=== PATIENT | female | born 1940 | race Caucasian/White ===

== ENCOUNTER 2020-11-26 08:14 | Day surgery (SDC) | payer MEDICARE ==
--- NOTE | 2020-11-25 12:00 | NUR ---
SPOKE WITH PATIENT ON THE PHONE TO UPDATE MEDICATIONS AND ALLERGY LIST.
[~2020-11-26] VITALS: Ht 162.6 cm; Wt 79.0 kg
[~2020-11-26 08:14] MED LIST: ATEN50 PO; HYDCHL25 PO; LOSA50 PO; OMEP20ER PO; ZOCOR20 MG PO
--- NOTE | 2020-11-26 09:25 | NUR ---
Ambulatory in Day Surgery History, Chart, Medications and Allergies reviewed before start of procedure.Patient confirms NPO status and agrees with scheduled surgery. Lungs clear T/O to Auscultation. Patient States Post-Procedure ride home has been arranged WITH DAUGHTER
--- NOTE | 2020-11-26 09:43 | NUR ---
11/26/20 0943 Leyda Bassett HISTORY,CHART, MEDICATIONS AND ALLERGIES REVIEWED BEFORE START OF PROCEDURE. PATIENT CONFIRMS NPO STATUS AND AGREES WITH SCHEDULED PROCEDURE. 3-LEAD EKG REVIEWED WITH PHYSICIAN PRIOR TO START OF PROCEDURE. MONITOR INTACT WITH CONTINUOUS PULSE OXIMETRY AND INTERMITTENT BP. SUPPLEMENTAL O2 TO BE TITRATED THROUGHOUT PROCEDURE TO MAINTAIN O2 SATURATION ABOVE 90%. PATIENT DETERMINED TO BE ASA APPROPRIATE FOR MODERATE SEDATION PRIOR TO START OF PROCEDURE BY . Bite Block Placed AND REMOVED AT END OF CASE.
--- NOTE | 2020-11-26 10:55 | NUR ---
Patient up to Ambulate independently. Gait steady. Discharge instructions reviewed with patient. Patient verbalizes understanding. Copy given to patient to take home. Discharged via wheelchair to private car for ride home.
== END 2020-11-26 10:54 | disposition home or self-care (01) ==
LOC: ORSCMMR 08:14 → ORD 09:30 → ORSCMMR 10:54
PROVIDERS: Internal Medicine Gastroenterology
PROC: 0DB98ZX Excision of Duodenum, Via Natural or Artificial Opening Endoscopic, Diagnostic (ICD-10-PCS; principal; 2020-11-26 09:30)
PROC: 0DB48ZX Excision of Esophagogastric Junction, Via Natural or Artificial Opening Endoscopic, Diagnostic (ICD-10-PCS; principal; 2020-11-26 09:30)
PROC: 0DB78ZX Excision of Stomach, Pylorus, Via Natural or Artificial Opening Endoscopic, Diagnostic (ICD-10-PCS; principal; 2020-11-26 09:30)
DX: R11.2 Nausea with vomiting, unspecified (principal); R10.13 Epigastric pain; K21.9 Gastro-esophageal reflux disease without esophagitis; K22.2 Esophageal obstruction; K44.9 Diaphragmatic hernia without obstruction or gangrene; I10 Essential (primary) hypertension; E78.00 Pure hypercholesterolemia, unspecified; Z79.899 Other long term (current) drug therapy
CPT/HCPCS: 88305; 88312; 88342; A9270; J2250; J3010; J7120

== ENCOUNTER 2021-10-07 17:47 | Emergency (ER) | payer MEDICARE ==
[~2021-10-07] VITALS: Ht 162.6 cm; Wt 72.6 kg
[~2021-10-07 17:47] MED LIST changes: +HYDR1TAB94 PO; +Norco 5-325 Ta1 EACH PO; +VALA500 PO
[2021-10-07 19:15] LABS: BASOPHILS ABSOLUTE AUTO 0.03 K/mm3 (0.00-0.23); BASOPHILS PERCENT AUTO 0 % (0-2); EOSINOPHILS PERCENT AUTO 0 % (0-6); Hematocrit 32.8 % (33.0-51.0); Hemoglobin 9.9 g/dL (11.5-16.0); IMMATURE GRAN ABSOLUTE AUTO 0.02 K/mm3 (0.00-0.10); IMMATURE GRAN PERCENT AUTO 0 % (0-1); LYMPHOCYTES ABSOLUTE AUTO 2.33 K/mm3 (0.84-5.20); LYMPHOCYTES PERCENT AUTO 30 % (21-46); MONOCYTES ABSOLUTE AUTO 0.72 K/mm3 (0.16-1.47); MONOCYTES PERCENT AUTO 9 % (4-13); Mean Corpuscular HGB 24.6 pg (26.0-34.0); Mean Corpuscular HGB Conc 30.2 g/dL (31.5-36.5); Mean Corpuscular Volume 82 fL (80-100); Mean Platelet Volume 10.2 fL (9.1-12.4); NEUTROPHILS ABSOLUTE AUTO 4.79 K/mm3 (1.96-9.15); NEUTROPHILS PERCENT AUTO 61 % (41-73); Platelet Count 333 K/mm3 (150-400); RDW Coefficient Variation 16.4 % (11.7-14.2); Red Blood Cell Count 4.02 M/mm3 (3.80-5.20); White Blood Cell Count 7.89 K/mm3 (4.00-11.30)
[2021-10-07 19:32] LABS: Alanine Aminotransfer (ALT/SGP 18 U/L (12-78); Albumin, Blood 3.3 g/dL (3.4-5.0); Albumin/Globulin Ratio 0.8 (0.8-1.8); Alk Phos 63 U/L (50-136); Anion Gap 5 mmol/L (6-16); Aspartate Aminotrans (AST/SGOT 13 U/L (12-37); Bilirubin, Total 0.2 mg/dL (0.1-1.0); Blood Urea Nitrogen 14 mg/dL (8-24); Bun/Creatinine Ratio 15.8 (12.0-20.0); CO2, Blood 29 mmol/L (21-32); Chloride, Blood 105 mmol/L (98-108); Creatinine, Blood 0.89 mg/dL (0.40-1.00); Globulin, Blood 4.1 g/dL (2.2-4.0); Glomerular Filtration Rate >60 (60-); Glucose, Blood 112 mg/dL (70-99); Potassium, Blood 3.9 mmol/L (3.5-5.5); Sodium, Blood 139 mmol/L (136-145); Total Protein, Blood 7.4 g/dL (6.4-8.2)
[2021-10-07 23:15] LABS: Source, Urine Clean Catch
[2021-10-07 23:17] LABS: Bilirubin, Urine Neg (Neg); Blood, Urine Neg (Neg); Glucose Qualitative, Urine Neg (Neg); Ketones, Urine Neg (Neg); Leukocyte Esterase, Urine Neg (Neg); Nitrite, Urine Neg (Neg); Protein, Urine Neg (Neg); Urobilinogen, Urine NORM (Normal)
[2021-10-07 23:20] LABS: Appearance, Urine Clear (Clear); Color, Urine Yellow (P-Yellow)
[2021-10-07] MEDS ORDERED: HYDMOR2 PO (23:57)
== END 2021-10-08 00:15 | disposition home or self-care (01) ==
LOC: ER 17:47
PROVIDERS: Emergency Medicine; Physician Assistant
DX: B02.9 Zoster without complications (principal); R10.9 Unspecified abdominal pain; Z87.891 Personal history of nicotine dependence
CPT/HCPCS: 36415; 71045; 74177; 80053; 81003; 83690; 84484; 85025; 93005; 93010; 96374; 96375; 99284-25; J1170; J2405; J7030; Q9967

== ENCOUNTER 2021-10-20 04:30 | Inpatient (IN) | payer MEDICARE ==
[~2021-10-20] VITALS: Ht 162.6 cm; Wt 72.6 kg
[~2021-10-20 04:30] MED LIST changes: +HYDMOR2 PO
[2021-10-20 06:43] LABS: BASOPHILS ABSOLUTE AUTO 0.02 K/mm3 (0.00-0.23); BASOPHILS PERCENT AUTO 0 % (0-2); EOSINOPHILS PERCENT AUTO 0 % (0-6); Hemoglobin 10.3 g/dL (11.5-16.0); IMMATURE GRAN ABSOLUTE AUTO 0.03 K/mm3 (0.00-0.10); IMMATURE GRAN PERCENT AUTO 0 % (0-1); LYMPHOCYTES PERCENT AUTO 24 % (21-46); MONOCYTES ABSOLUTE AUTO 0.73 K/mm3 (0.16-1.47); MONOCYTES PERCENT AUTO 9 % (4-13); Mean Corpuscular HGB 24.6 pg (26.0-34.0); Mean Corpuscular HGB Conc 30.3 g/dL (31.5-36.5); Mean Corpuscular Volume 81 fL (80-100); NEUTROPHILS ABSOLUTE AUTO 5.58 K/mm3 (1.96-9.15); NEUTROPHILS PERCENT AUTO 67 % (41-73); Platelet Count 329 K/mm3 (150-400); RDW Standard Deviation 50.3 fL (35.1-46.3); Red Blood Cell Count 4.19 M/mm3 (3.80-5.20); White Blood Cell Count 8.36 K/mm3 (4.00-11.30)
[2021-10-20 07:11] LABS: Albumin, Blood 3.2 g/dL (3.4-5.0); Albumin/Globulin Ratio 0.8 (0.8-1.8); Bilirubin, Total 0.3 mg/dL (0.1-1.0); Bun/Creatinine Ratio 14.4 (12.0-20.0); Calcium, Blood 9.2 mg/dL (8.5-10.1); Creatinine, Blood 0.97 mg/dL (0.40-1.00); Globulin, Blood 3.9 g/dL (2.2-4.0); Potassium, Blood 3.4 mmol/L (3.5-5.5); Total Protein, Blood 7.1 g/dL (6.4-8.2)
[2021-10-20 09:36] LABS: Percent Saturation 6.4 % (15.0-50.0)
--- NOTE | 2021-10-20 18:43 | NUR ---
SHIFT SUMMARY PT TO ROOM AT APPROX 1230. PT CAME TO HOSPITAL VIA EMS FOR ABD PAIN X5 WEEKS W/ CONSTIPATION. PT TO HAVE EXPLORATIVE PROCEDURE TOMORROW. PT ON WATER ONLY DIET W/ ADMINISTRATION OF MAGNESIUM CITRATE FOR COLON CLEANSING. PT MEDICATIONS GIVEN ORDERED. PT RECEIVING ACETAMINOPHEN AND FENTANYL FOR PAIN CONTROL. PT TOLERATING WATER INTAKE WELL. RESTING IN ROOM AT THIS TIME.
--- NOTE | 2021-10-21 04:06 | NUR ---
SHIFT SUMMARY PT HAVING MULTIPLE AND FREQUENT BROWN LIQUID STOOL. INDEPENDENT TO THE RESTROOM. 50 MCG IV FENTANYL FOR ABD PAIN PRN. PLAN FOR COLON CLEANSE TODAY AND COLONOSCOPY THIS AFTERNOON. USES CALL LIGHT APPROPRIATELY.
[2021-10-21 11:48] LABS: Anion Gap 4 mmol/L (6-16); Blood Urea Nitrogen 8 mg/dL (8-24); Bun/Creatinine Ratio 9.4 (12.0-20.0); CO2, Blood 26 mmol/L (21-32); Calcium, Blood 9.3 mg/dL (8.5-10.1); Chloride, Blood 107 mmol/L (98-108); Creatinine, Blood 0.85 mg/dL (0.40-1.00); Glomerular Filtration Rate >60 (60-); Glucose, Blood 108 mg/dL (70-99); Potassium, Blood 4.2 mmol/L (3.5-5.5); Sodium, Blood 137 mmol/L (136-145)
--- NOTE | 2021-10-21 12:00 | NUR ---
PT MADE NPO FOR UPCOMING SCOPE.
[2021-10-21 13:13] LABS: Influenza A, PCR NEGATIVE (NEGATIVE); Influenza B, PCR NEGATIVE (NEGATIVE); Resp Syncytial Virus, PCR NEGATIVE (NEGATIVE); SARS-Cov-2 (COVID-19) PCR, MMC NEGATIVE (NEGATIVE)
--- NOTE | 2021-10-21 16:42 | NUR ---
10/21/21 1642 Marko Barnes History, Chart, Medications and Allergies reviewed before start of procedure. Patient confirms NPO status and agrees with scheduled surgery. 3-LEAD EKG REVIEWED WITH PHYSICIAN PRIOR TO START OF PROCEDURE. MONITOR INTACT WITH CONTINUOUS PULSE OXIMETRY AND INTERMITTENT BP. PATIENT DETERMINED TO BE ASA APPROPRIATE FOR PROPOFOL SEDATION PRIOR TO START OF PROCEDURE BY DR. MORRISON
--- NOTE | 2021-10-21 17:47 | NUR ---
PT BACK FROM COLONOSCOPY.
[2021-10-22 05:04] LABS: Hematocrit 30.8 % (33.0-51.0); Hemoglobin 9.2 g/dL (11.5-16.0); Mean Corpuscular HGB 24.1 pg (26.0-34.0); Mean Corpuscular HGB Conc 29.9 g/dL (31.5-36.5); Mean Corpuscular Volume 81 fL (80-100); Mean Platelet Volume 11.1 fL (9.1-12.4); Platelet Count 285 K/mm3 (150-400); RDW Coefficient Variation 17.2 % (11.7-14.2); RDW Standard Deviation 50.6 fL (35.1-46.3); Red Blood Cell Count 3.81 M/mm3 (3.80-5.20); White Blood Cell Count 6.69 K/mm3 (4.00-11.30)
--- NOTE | 2021-10-22 05:15 | NUR ---
ASSISTANT CHIEF OF POLICE SUMMARY PATIENT ALERT AND ORIENTED X4 AND COOPERATIVE WITH CARE THROUGHT THE SHIFT. PATIENT REPORTED 10/10 ABDOMINAL PAIN DURING THE NIGHT AND WAS MEDICATED WITH FENTANYL PER EMAR. JEAN IV REMOVED TO ACCOMODATE PATIENT COMFORT. PATIENT DENIES NAUSEA OR VOMITTING. VSS. PATIENT REMAINS ON CLEAR LIQUID DIET, PER DR. MORRISON. MAY UNDERGO PROCEDURE IN THE AM.
[2021-10-22 05:32] LABS: Anion Gap 5 mmol/L (6-16); Blood Urea Nitrogen 6 mg/dL (8-24); Bun/Creatinine Ratio 7.1 (12.0-20.0); CO2, Blood 24 mmol/L (21-32); Calcium, Blood 8.8 mg/dL (8.5-10.1); Chloride, Blood 109 mmol/L (98-108); Creatinine, Blood 0.85 mg/dL (0.40-1.00); Glomerular Filtration Rate >60 (60-); Glucose, Blood 94 mg/dL (70-99); Potassium, Blood 3.9 mmol/L (3.5-5.5); Sodium, Blood 138 mmol/L (136-145)
--- NOTE | 2021-10-22 15:48 | NUR ---
Pt. is awake in bed and welcomes my visit. Daughter of Pt. is present. Pt. is unsettled about the unknown prognosis regarding her cancer. Listen empthetically with a calming presence. Pt. displayed evidecne of reduced stress and verbalized that she is a woman of joy. Established rapport with Pt. and her daughter. Pt. displayed evidence of Prayed for Pt. Both womern verbalized gratitude for the spiritual care visit.
--- NOTE | 2021-10-22 18:34 | NUR ---
SHIFT SUMMARY PT AOX4. PATIENT MOVING INDEPENDENTLY IN ROOM, NO BM TODAY. PT REPORTED PAIN MOSTLY IN THE LUQ THAT SPREADS TO THE BACK, SWITCHED FROM FENTANYL TO DILAUDID, PT REPORTS BETTER PAIN CONTROL. DIET ADVANCED TO REGLAR, CALL LIGHT WITHIN REACH. PLAN IS TO DISCHARGE TOMORROW AND SURGERY TO HAPPEN AT A LATER DATE.
--- NOTE | 2021-10-23 05:33 | NUR ---
PATIENT REPORTED LEFT SIDED ABDOINAL PAIN THROUGHOUT THE NIGHT. SHE WAS MEDICATED WITH DILAUDED Q4 PER EMAR. NO WORSENING ABDOMINAL DISTENTION OR TENDERNESS WAS NOTED. PATIENT DENIES NAUSEA OR VOMITING. VSS. NO ACUTE CHANGES THIS SHIFT.
[2021-10-23] MEDS ORDERED: HYDMOR2 PO (12:34)
[2021-10-23] MEDS ORDERED: DOCU100 PO (12:35)
[2021-10-23] MEDS ORDERED: GABA300 PO (12:36)
--- NOTE | 2021-10-23 15:07 | NUR ---
DISCHARGE PT DISCHARGED, REPORTS PAIN LEVEL 5/10. TOLERATING FOOD AND FLUID, INDEPENDENT IN ROOM. PT AND DAUGHTER IN AGREEMENT TO DISCHARGE AND RETURN FOR PROCEDURE AT A LATER DATE. HARD COPY OF PRESCRIPTION IN PT'S FOLDER.
== END 2021-10-23 15:15 | disposition home or self-care (01) | DRG 375 ==
LOC: ER 04:30 → SURS 04:31 → ERHOLD 04:31 → SURS 11:21
PROVIDERS: Emergency Medicine; Internal Medicine; Internal Medicine Gastroenterology; ADMIT Internal Medicine
PROC: 0DBP8ZZ Excision of Rectum, Via Natural or Artificial Opening Endoscopic (ICD-10-PCS; principal; 2021-10-23)
PROC: 0DBK8ZX Excision of Ascending Colon, Via Natural or Artificial Opening Endoscopic, Diagnostic (ICD-10-PCS; 2021-10-23)
DX: C18.2 Malignant neoplasm of ascending colon (principal); B02.29 Other postherpetic nervous system involvement; K56.609 Unspecified intestinal obstruction, unspecified as to partial versus complete obstruction; C77.2 Secondary and unspecified malignant neoplasm of intra-abdominal lymph nodes; K21.9 Gastro-esophageal reflux disease without esophagitis; E78.00 Pure hypercholesterolemia, unspecified; I12.9 Hypertensive chronic kidney disease with stage 1 through stage 4 chronic kidney disease, or unspecified chronic kidney disease; N18.30 Chronic kidney disease, stage 3 unspecified; E87.5 Hyperkalemia; D50.9 Iron deficiency anemia, unspecified; D63.1 Anemia in chronic kidney disease; E87.6 Hypokalemia; K64.4 Residual hemorrhoidal skin tags; R63.4 Abnormal weight loss; K59.00 Constipation, unspecified; E78.5 Hyperlipidemia, unspecified; Z68.27 Body mass index [BMI] 27.0-27.9, adult; Z90.710 Acquired absence of both cervix and uterus; Z90.49 Acquired absence of other specified parts of digestive tract; Z98.890 Other specified postprocedural states; Z87.891 Personal history of nicotine dependence; Z88.5 Allergy status to narcotic agent; Z88.8 Allergy status to other drugs, medicaments and biological substances
CPT/HCPCS: 0241U; 36415; 71260; 74177; 80048; 80053; 82378; 82728; 83540; 83550; 83690; 85025; 85027; 88305; 96365-59; 96366; 96375; 96376; 99285-25; A9270; G0378; J1170; J1885; J2001; J2405; J2704; J3010; J3480; J7030; J7120; Q9967

== ENCOUNTER 2021-10-28 07:55 | Inpatient (IN) | payer MEDICARE ==
[~2021-10-28] VITALS: Ht 162.6 cm; Wt 68.8 kg
[~2021-10-28 07:55] MED LIST changes: +DOCU100 PO; +GABA300 PO; -ZOCOR20 MG PO; +Zocor40 MG PO
--- NOTE | 2021-10-28 08:33 | NUR ---
ARRIVED IN WHEEL CHAIR ABLE TO GET ON SCALE AND WEIGHED AND ESCORTED TO BEDSIDE. History, Chart, Medications and Allergies reviewed before start of procedure. Patient confirms NPO status and agrees with scheduled surgery.
--- NOTE | 2021-10-28 19:19 | NUR ---
SHIFT SUMMARY POD0 R ANAI COLECTOMY FOR TUMOR REMOVAL, A/OX4, VSS, TOLERATING DIET, PAIN WELL MANAGED, JOHNSON IN PLACE DRAINING TO GRAVITY. PT SLEPT THROUGH MOST OF THE SHIFT AFTER COMING OUT OF PACU. NO ACUTE EVENTS THIS SHIFT. CALL LIGHT IN REACH, REPORT GIVEN TO KAITLIN BENAVIDES.
--- NOTE | 2021-10-28 19:34 | NUR ---
PT COMPLAINS OF PAIN FROM JOHNSON, D/C JOHNSON. PT TOLERATED INTERVENTION WELL.
[2021-10-29 05:07] LABS: BASOPHILS ABSOLUTE AUTO 0.02 K/mm3 (0.00-0.23); BASOPHILS PERCENT AUTO 0 % (0-2); EOSINOPHILS PERCENT AUTO 0 % (0-6); Hematocrit 27.9 % (33.0-51.0); Hemoglobin 8.5 g/dL (11.5-16.0); IMMATURE GRAN ABSOLUTE AUTO 0.04 K/mm3 (0.00-0.10); IMMATURE GRAN PERCENT AUTO 0 % (0-1); LYMPHOCYTES ABSOLUTE AUTO 1.25 K/mm3 (0.84-5.20); LYMPHOCYTES PERCENT AUTO 13 % (21-46); MONOCYTES ABSOLUTE AUTO 0.86 K/mm3 (0.16-1.47); MONOCYTES PERCENT AUTO 9 % (4-13); Mean Corpuscular HGB 24.5 pg (26.0-34.0); Mean Corpuscular HGB Conc 30.5 g/dL (31.5-36.5); Mean Corpuscular Volume 80 fL (80-100); Mean Platelet Volume 11.3 fL (9.1-12.4); NEUTROPHILS ABSOLUTE AUTO 7.79 K/mm3 (1.96-9.15); NEUTROPHILS PERCENT AUTO 78 % (41-73); Platelet Count 264 K/mm3 (150-400); RDW Standard Deviation 49.4 fL (35.1-46.3); Red Blood Cell Count 3.47 M/mm3 (3.80-5.20); White Blood Cell Count 9.96 K/mm3 (4.00-11.30)
[2021-10-29 05:44] LABS: Bun/Creatinine Ratio 8.9 (12.0-20.0); Calcium, Blood 8.7 mg/dL (8.5-10.1); Creatinine, Blood 0.9 mg/dL (0.40-1.00); Potassium, Blood 3.6 mmol/L (3.5-5.5)
--- NOTE | 2021-10-29 05:46 | NUR ---
PT IS A&OX4, SBA TO BR AND IS ABLE TO MAKE NEEDS KNOWN. POST OP DAY 1 FOR LAP ANAI TAMRA. JOHNSON D/C'D AT START OF SHIFT PER PATIENT'S REQUEST, PT ABLE TO AMBULATE TO BR AND VIOD. PAIN CONTROLLED WITH PRN NORCO. LAP SITES ARE CLEAN AND DRY WITH NO REPORTS OF PAIN OR INFLAMMATION. BOWEL TONES ARE AUTIABLE IN ALL QUAD, FAINT IN THE LLQ. PT TOLERATING CLEAR LIQUID DIET. SLEEPS BETWEEN CARES, 6+ HOURS THIS SHIFT.
--- NOTE | 2021-10-29 10:39 | NUR ---
Spiritual Care Request: Pt. is awake in bed and welcomes my visit. Pt.is pleasant, and had recently been readmitted for cancer surgery. Pt. is alert. Establish Rapport and provide a pastoral presence as well as facilitate a life review. Pt. displays evidence of a strong joy. Prayed with Pt. Pt. verbalized gratiude for the spiritual care visit.
--- NOTE | 2021-10-29 18:20 | NUR ---
SHIFT SUMMARY PATIENT COMPLAINED OF UPPER ABDOMINAL PAIN THAT WORSENED ON DEEP BREATHING. PAIN WAS CONTROLLED W/ NORCO ORDERED BUT WOULD RETURN BEFORE NEXT AVAILABLE ADMINISTRATION AND WORSENED UPON AMBULATION. PT ABLE TO AMBULATE HERSELF TO THE BATHROOM MULTIPLE TIMES T/O SHIFT REQUIRING MINIMAL ASSISTANCE. OTHER MEDS GIVEN ORDERED T/O SHIFT. PT REPORTED A BOUT OF NAUSEA AFTER MEALS WHICH RESOLVED W/O MEDICAL INTERVENTION. PT IS OTHERWISE TOLERATING DIET WELL. PT REQUESTED USE OF ATTENDS DUE TO URGENCY ISSUES. PT RESTING IN ROOM AT THIS TIME.
--- NOTE | 2021-10-30 05:52 | NUR ---
SHIFT SUMMARY NO ACUTE CHANGES OVERNIGHT. PT STS SHE FELT MORE PAINFUL LAST NIGHT FROM MOVING AROUND DURING THE DAY. PAIN MANAGED WITH TORADOL 15MG AND NORCO 5/325. PAIN LEVEL FROM 10/10 TO MODERATE THIS MORNING 4-5/10 PAIN LEVEL. PT AMBULATES SBA IN THE BATHROOM. VOIDING WITHOUT ISSUES. POD2 R HEMICOLECTOMY WITH ABD INCISION, RUDDY DRESSING SUCTION WELL, CDI. PT HAS BM (SMALL) THIS AM. PT TOLERATING CLEAR LIQ DIET. DENIES N/V. LR INFUSING AT 50MLS/HR. CALL LIGHT WITHIN REACH. WILL PROVIDE REPORT TO ONCOMING NURSE.
--- NOTE | 2021-10-30 16:07 | NUR ---
SHIFT SUMMARY - POST OP DAY 2 PT AOX4, PLEASANT. INDEPENDENTLY AMBULATING TO BATHROOM WITH FWW, VOIDING WITHOUT ISSUE. PAIN MANAGED PER EMAR. 4 LAP SITES AND ABD INCISION WITH RUDDY DRESSING ALL C/D/I. DIET ADVANCED TO REGULAR. DENIES NAUSEA/VOMITING. IV IN LEFT AC SALINE LOCKED. CALL LIGHT WITHIN REACH. PLAN IS TO CONTINUE TO MONITOR PROGRESS, WITH THE POSSIBILITY OF DISCHARGING THIS WEEKEND.
--- NOTE | 2021-10-30 16:13 | NUR ---
SHIFT SUMMARY: POD 2 RIGHT ANAI COLECTOMY PATIENT IS A&OX4. VS ARE WNL AND ON RA. PAIN IS MANAGED WITH 2 NORCO AND TORDAOL. MIDLINE ABD HAS RUDDY DRESSING THAT IS C/D/I. TOLERATING PO INTAKE AND IS VOIDING. HER 3 LAP SITES WITH STERI STRIPS ARE ALSO C/D/I. SHE IS AMBULATING IN THE ROOM INDEP. CALLS APPROPRIATELY. CALL LIGHT WITHIN REACH. THE PLAN IS FOR POSSIBLE DISCHARGE TOMORROW IF APPROPRIATE.
--- NOTE | 2021-10-31 08:31 | NUR ---
SUMMARY PT HAD EPISODE UPON WAKING THIS AM OF NAUSEA AND PAIN.MED WITH TORADOL AND ZOFRAN.PT SLEPT AFTER. PT STATES WHEN AWAKE AGAIN, TRACE OF NAUSEA PERSISTS. MED WITH PROTONIX PER ORDERS.
--- NOTE | 2021-10-31 15:59 | NUR ---
SHIFT SUMMARY PT A&OX4, VSS/RA, POD3 LAP ANAI STERIS STRIPS & RUDDY CDI/WNL. DENIES NEED FOR NORCO, TORADOL GIVEN PER EMAR. PERCY SMALL AMT PO; ZOFRAN GIVEN 2X THIS SHIFT. AMBULATING INDEPENDENTLY TO BRP/HALLWAY. VOIDING WELL/BMS TODAY X3. WILL REPORT TO ONCOMING NOC KENNEDY.
[2021-11-01] MEDS ORDERED: ONDA4ODT MM (12:05)
[2021-11-01] MEDS ORDERED: HYDR1TAB94 PO (12:05)
--- NOTE | 2021-11-01 12:37 | NUR ---
DISCHARGE SUMMARY: A&Ox4. PAIN LVL 1. PROVIDED WITH DC INSTRUCTIONS AND PACKET. CONT HOME MEDS; +NORCO AND ZOFRAN. HARD COPY Rx X2 PROVIDED TO PT. VOIDING AND STOOLING WITHOUT DIFFICULTY. TOLERATING PO INTAKE. IND AMB. LEFT UNIT VIA WC ESCORT WITH ALL BELONGINGS AND DC PACKET FOR TRANSPORT HOME WITH HER DAUGHTER.
[2021-11-08] MEDS ORDERED: MICROZIDE12.5 M2 PO (22:57)
--- NOTE | 2021-11-08 23:25 | NUR ---
REVIEWED PT'S INFORMATION R/T CURRENT ADMISSION
== END 2021-11-01 14:00 | disposition home or self-care (01) | DRG 331 ==
LOC: SURS 07:55 → PRE IP 09:30 → SURS 14:56
PROVIDERS: ADMIT Surgery
PROC: 0DTF4ZZ Resection of Right Large Intestine, Percutaneous Endoscopic Approach (ICD-10-PCS; principal; 2021-10-28 09:30)
DX: C18.2 Malignant neoplasm of ascending colon (principal); Z79.899 Other long term (current) drug therapy; Z88.5 Allergy status to narcotic agent
CPT/HCPCS: 36415; 80048; 85025; 86850; 86900; 86901; 88309; A9270; J0295; J0360; J1100; J1650; J1885; J2370; J2405; J2704; J2765; J3010; J7120

== ENCOUNTER 2021-11-08 17:33 | Inpatient (IN) | payer MEDICARE, OTHER ==
[~2021-11-08] VITALS: Ht 162.6 cm; Wt 72.6 kg
[~2021-11-08 17:33] MED LIST changes: +ONDA4ODT MM
[2021-11-08 18:18] LABS: BASOPHILS ABSOLUTE AUTO 0.03 K/mm3 (0.00-0.23); BASOPHILS PERCENT AUTO 0 % (0-2); EOSINOPHILS PERCENT AUTO 0 % (0-6); Hematocrit 33.2 % (33.0-51.0); IMMATURE GRAN ABSOLUTE AUTO 0.08 K/mm3 (0.00-0.10); IMMATURE GRAN PERCENT AUTO 1 % (0-1); LYMPHOCYTES ABSOLUTE AUTO 0.86 K/mm3 (0.84-5.20); LYMPHOCYTES PERCENT AUTO 6 % (21-46); MONOCYTES ABSOLUTE AUTO 0.71 K/mm3 (0.16-1.47); MONOCYTES PERCENT AUTO 5 % (4-13); Mean Corpuscular HGB Conc 30.1 g/dL (31.5-36.5); Mean Corpuscular Volume 80 fL (80-100); Mean Platelet Volume 10.3 fL (9.1-12.4); NEUTROPHILS ABSOLUTE AUTO 12.01 K/mm3 (1.96-9.15); NEUTROPHILS PERCENT AUTO 88 % (41-73); Platelet Count 483 K/mm3 (150-400); RDW Coefficient Variation 17.3 % (11.7-14.2); RDW Standard Deviation 50.2 fL (35.1-46.3); Red Blood Cell Count 4.17 M/mm3 (3.80-5.20); White Blood Cell Count 13.69 K/mm3 (4.00-11.30)
[2021-11-08 18:31] LABS: Source, Urine Straight Cath
[2021-11-08 18:36] LABS: Alanine Aminotransfer (ALT/SGP 21 U/L (12-78); Albumin, Blood 2.8 g/dL (3.4-5.0); Albumin/Globulin Ratio 0.8 (0.8-1.8); Alk Phos 58 U/L (50-136); Anion Gap 5 mmol/L (6-16); Aspartate Aminotrans (AST/SGOT 13 U/L (12-37); Bilirubin, Total 0.4 mg/dL (0.1-1.0); Blood Urea Nitrogen 11 mg/dL (8-24); Bun/Creatinine Ratio 13.1 (12.0-20.0); CO2, Blood 29 mmol/L (21-32); Calcium, Blood 9.3 mg/dL (8.5-10.1); Chloride, Blood 106 mmol/L (98-108); Creatinine, Blood 0.84 mg/dL (0.40-1.00); Globulin, Blood 3.5 g/dL (2.2-4.0); Glomerular Filtration Rate >60 (60-); Glucose, Blood 109 mg/dL (70-99); Potassium, Blood 3.3 mmol/L (3.5-5.5); Sodium, Blood 140 mmol/L (136-145); Total Protein, Blood 6.3 g/dL (6.4-8.2)
[2021-11-08 18:38] LABS: Appearance, Urine Turbid (Clear); Bilirubin, Urine Neg (Neg); Blood, Urine Neg (Neg); Color, Urine Yellow (P-Yellow); Glucose Qualitative, Urine Neg (Neg); Ketones, Urine Neg (Neg); Leukocyte Esterase, Urine Neg (Neg); Nitrite, Urine Neg (Neg); Protein, Urine 2+ (Neg); Urobilinogen, Urine NORM (Normal)
[2021-11-08 19:05] LABS: Red Blood Cells, Urine 0-2 /hpf (0-2); Squamous Epithelial Cells Few /hpf (Few); White Blood Cells, Urine 0-2 /hpf (0-5)
[2021-11-08 19:06] LABS: Amorphous Heavy (0-Heavy); Bacteria Many /hpf; Mucus Mod (0-Heavy)
[2021-11-08] MEDS ORDERED: MICROZIDE12.5 M2 PO ×2 (22:57)
[2021-11-08] MEDS ORDERED: ATEN50 PO (22:57)
--- NOTE | 2021-11-09 03:51 | NUR ---
SHIFT SUMMARY PT NEW ED ADMIT THIS EVENING. PLEASANT AND COOPERATIVE. PT WITH RECENT LAP COLECTOMY. 4 INCISION SITES WITH STERI STRIPS IN PLACE. NO REDNESS NOTED. POSSIBLY SLIGHT SWELLING JUST TO THE LEFT OF LARGEST INCISION MID ABD. THIS IS WHERE PT REPORTS PAIN. MEDICATED PER EMAR. PT STATED THAT SHE HAD 2 EPISODES OF DIARRHEA DURING THE DAY BEFORE COMING TO THE ER. NONE SINCE ADMISSION. JOHNSON CATHETER PLACED IN ED, NO ORDER AND PT REQUESTED TO HAVE REMOVED. JOHNSON REMOVED AND PT WAS ABLE TO IMMEDIATELY VOID IN THE BSC. FEBRILE PRIOR TO ADMISSION, RESOLVED WITH RECTAL TYLENOL GIVEN BY ED RN. VITAL SIGNS STABLE. WILL CONTINUE TO MONITOR.
[2021-11-09 05:15] LABS: BASOPHILS ABSOLUTE AUTO 0.02 K/mm3 (0.00-0.23); BASOPHILS PERCENT AUTO 0 % (0-2); EOSINOPHILS PERCENT AUTO 0 % (0-6); Hematocrit 25.9 % (33.0-51.0); Hemoglobin 7.8 g/dL (11.5-16.0); IMMATURE GRAN ABSOLUTE AUTO 0.04 K/mm3 (0.00-0.10); IMMATURE GRAN PERCENT AUTO 0 % (0-1); LYMPHOCYTES ABSOLUTE AUTO 1.54 K/mm3 (0.84-5.20); LYMPHOCYTES PERCENT AUTO 12 % (21-46); MONOCYTES PERCENT AUTO 8 % (4-13); Mean Corpuscular HGB 24.1 pg (26.0-34.0); Mean Corpuscular HGB Conc 30.1 g/dL (31.5-36.5); Mean Corpuscular Volume 80 fL (80-100); Mean Platelet Volume 10.5 fL (9.1-12.4); NEUTROPHILS ABSOLUTE AUTO 10.43 K/mm3 (1.96-9.15); NEUTROPHILS PERCENT AUTO 80 % (41-73); Platelet Count 357 K/mm3 (150-400); RDW Coefficient Variation 17.4 % (11.7-14.2); Red Blood Cell Count 3.23 M/mm3 (3.80-5.20); White Blood Cell Count 13.03 K/mm3 (4.00-11.30)
[2021-11-09 05:46] LABS: Albumin, Blood 2.1 g/dL (3.4-5.0); Anion Gap 5 mmol/L (6-16); Blood Urea Nitrogen 11 mg/dL (8-24); Bun/Creatinine Ratio 11.4 (12.0-20.0); CO2, Blood 28 mmol/L (21-32); Calcium, Blood 8.1 mg/dL (8.5-10.1); Chloride, Blood 108 mmol/L (98-108); Creatinine, Blood 0.96 mg/dL (0.40-1.00); Glomerular Filtration Rate 55 (60-); Glucose, Blood 123 mg/dL (70-99); Phosphorus, Blood 4.5 mg/dL (2.5-4.9); Sodium, Blood 141 mmol/L (136-145)
[2021-11-10 05:37] LABS: Hematocrit 24.2 % (33.0-51.0); Hemoglobin 7.3 g/dL (11.5-16.0); Mean Corpuscular HGB 24.4 pg (26.0-34.0); Mean Corpuscular HGB Conc 30.2 g/dL (31.5-36.5); Mean Corpuscular Volume 81 fL (80-100); Mean Platelet Volume 10.7 fL (9.1-12.4); Platelet Count 314 K/mm3 (150-400); RDW Coefficient Variation 17.5 % (11.7-14.2); RDW Standard Deviation 51.8 fL (35.1-46.3); Red Blood Cell Count 2.99 M/mm3 (3.80-5.20); White Blood Cell Count 8.74 K/mm3 (4.00-11.30)
[2021-11-10 05:57] LABS: Anion Gap 5 mmol/L (6-16); Blood Urea Nitrogen 14 mg/dL (8-24); Bun/Creatinine Ratio 14.9 (12.0-20.0); CO2, Blood 28 mmol/L (21-32); Calcium, Blood 8.4 mg/dL (8.5-10.1); Chloride, Blood 107 mmol/L (98-108); Creatinine, Blood 0.94 mg/dL (0.40-1.00); Glomerular Filtration Rate 57 (60-); Glucose, Blood 102 mg/dL (70-99); Phosphorus, Blood 2.5 mg/dL (2.5-4.9); Potassium, Blood 3.4 mmol/L (3.5-5.5); Sodium, Blood 140 mmol/L (136-145)
--- NOTE | 2021-11-10 06:30 | NUR ---
SHIFT SUMMARY A/OX4, SBA TO BSC. C/O MODERATE PAIN TO ABD THAT WORSENS WITH MOVEMENT. VSS, NO ACUTE CHANGES AT THIS TIME. BED IN LOWEST POSITION WITH CALL LIGHT IN REACH. WILL CONTINUE TO MONITOR AND REPORT TO ONCOMING RN.
[2021-11-10] MEDS ORDERED: Acetaminophen650 M1 PO (11:48)
[2021-11-10] MEDS ORDERED: VISBIOME 112.51 EACH PO (11:48)
[2021-11-10] MEDS ORDERED: AMOCLA875 PO ×2 (11:48)
[2021-11-14] MEDS ORDERED: ONDA4 PO ×2 (14:42)
== END 2021-11-10 14:14 | disposition home or self-care (01) | DRG 862 ==
LOC: ER 17:33 → SURS 17:34 → MEDS 17:34
PROVIDERS: Emergency Medicine; Family Medicine; Internal Medicine; ADMIT Surgery
DX: T81.43XA Infection following a procedure, organ and space surgical site, initial encounter (principal); A41.9 Sepsis, unspecified organism; J18.9 Pneumonia, unspecified organism; T81.44XA Sepsis following a procedure, initial encounter; K68.11 Postprocedural retroperitoneal abscess; E87.6 Hypokalemia; D50.9 Iron deficiency anemia, unspecified; E78.5 Hyperlipidemia, unspecified; I10 Essential (primary) hypertension; Z85.038 Personal history of other malignant neoplasm of large intestine; Z90.49 Acquired absence of other specified parts of digestive tract; K21.9 Gastro-esophageal reflux disease without esophagitis; Z98.890 Other specified postprocedural states; Z79.899 Other long term (current) drug therapy; Z88.5 Allergy status to narcotic agent; D75.839 Thrombocytosis, unspecified; Z87.891 Personal history of nicotine dependence
CPT/HCPCS: 36415; 51702; 74177; 80053; 80069; 81001; 83605; 83690; 84484; 85025; 85027; 87040; 87086; 93005; 93010; 94760; 96365-59; 96366; 96375; 96375-59; 96376; 99285-25; A9270; C9113; G0378; J2405; J2543; J2916; J3480; J7030; J7120; Q9967

== ENCOUNTER 2021-11-11 03:49 | Inpatient (IN) | payer MEDICARE, OTHER ==
[~2021-11-11] VITALS: Ht 162.6 cm; Wt 75.0 kg
[~2021-11-11 03:49] MED LIST changes: +AMOCLA875 PO; +Acetaminophen650 M1 PO; +MICROZIDE12.5 M2 PO; +VISBIOME 112.51 EACH PO
[2021-11-11 04:35] LABS: BASOPHILS ABSOLUTE AUTO 0.01 K/mm3 (0.00-0.23); BASOPHILS PERCENT AUTO 0 % (0-2); EOSINOPHILS PERCENT AUTO 0 % (0-6); Hematocrit 29.2 % (33.0-51.0); Hemoglobin 9.1 g/dL (11.5-16.0); IMMATURE GRAN ABSOLUTE AUTO 0.03 K/mm3 (0.00-0.10); IMMATURE GRAN PERCENT AUTO 0 % (0-1); LYMPHOCYTES PERCENT AUTO 10 % (21-46); MONOCYTES ABSOLUTE AUTO 0.61 K/mm3 (0.16-1.47); MONOCYTES PERCENT AUTO 6 % (4-13); Mean Corpuscular HGB 24.4 pg (26.0-34.0); Mean Corpuscular HGB Conc 31.2 g/dL (31.5-36.5); Mean Corpuscular Volume 78 fL (80-100); Mean Platelet Volume 10.7 fL (9.1-12.4); NEUTROPHILS ABSOLUTE AUTO 8.43 K/mm3 (1.96-9.15); NEUTROPHILS PERCENT AUTO 84 % (41-73); Platelet Count 407 K/mm3 (150-400); RDW Coefficient Variation 17.2 % (11.7-14.2); RDW Standard Deviation 48.7 fL (35.1-46.3); Red Blood Cell Count 3.73 M/mm3 (3.80-5.20); White Blood Cell Count 10.08 K/mm3 (4.00-11.30)
[2021-11-11 04:55] LABS: Alanine Aminotransfer (ALT/SGP 15 U/L (12-78); Albumin, Blood 2.3 g/dL (3.4-5.0); Albumin/Globulin Ratio 0.6 (0.8-1.8); Alk Phos 43 U/L (50-136); Anion Gap 7 mmol/L (6-16); Aspartate Aminotrans (AST/SGOT 11 U/L (12-37); Bilirubin, Total 0.4 mg/dL (0.1-1.0); Blood Urea Nitrogen 7 mg/dL (8-24); Bun/Creatinine Ratio 9.4 (12.0-20.0); CO2, Blood 28 mmol/L (21-32); Calcium, Blood 9.4 mg/dL (8.5-10.1); Chloride, Blood 104 mmol/L (98-108); Creatinine, Blood 0.75 mg/dL (0.40-1.00); Globulin, Blood 3.9 g/dL (2.2-4.0); Glomerular Filtration Rate >60 (60-); Glucose, Blood 128 mg/dL (70-99); Potassium, Blood 3.4 mmol/L (3.5-5.5); Sodium, Blood 139 mmol/L (136-145); Total Protein, Blood 6.2 g/dL (6.4-8.2)
--- NOTE | 2021-11-11 14:59 | NUR ---
Upon receiving a spiritual care referral, I visit pt. Pt has a tube in her nose and immediately states that she can't talk. I ask If I could say a prayer for her and she says, "Yes." I gladly provide prayer. Pt voices appreciation. I will continue to remain available to patient and family.
--- NOTE | 2021-11-11 17:50 | NUR ---
END OF SHIFT SUMMARY: PATIENT REPORTED ADBOMINAL PAIN RELATED TO GAS DURING THIS AFTERNOON. PATIENT UP TO RECLINER AND ENCOURAGED TO PERFORM LEG MOBILITY AND TO GET OUT OF BED. (PATIENT DOES NOT WANT TO AMBULATE WHILE NG TUBE IS IN PLACE). PATIENT REPORTED IMPROVEMENT IN ABD DISCOMFORT. MEDICATED ONCE FOR SORE THROAT. PATIENT MEDICATED ONCE FOR NAUSEA. NG TUBE IN PLACE WITH LOW CONTINUOUS SUCTION THROUGHOUT THE SHIFT. LIGHT GREEN LIQUID IN THE SUCTION TUBING - NOT ENOUGH TO REACH THE CANISTER. PATIENT ROUNDED ON BY DR. MARTINEZ. PATIENT AND DAUGHTER REPORT UNDERSTANDING OF PLAN FOR BOWEL REST. DAUGHTER IS SUPPORTIVE.
--- NOTE | 2021-11-12 02:55 | NUR ---
POP SINGER STS PT COMPLAINS OF L HAND BEING NUMB. PT ABLE TO MOVE ALL FINGERS AND WRIST. PT ABLE TO FEEL SENSATION OF HAND AND FINGERS BEING TOUCHED. PT STS THAT SHE FELL ASLEEP WITH HAND AND ARM RAISED ABOVE HER HEAD. WILL CONTINUE TO MONITOR. PT STS THAT SENSATION SLOWLY GETTING BETTER.
[2021-11-12 03:49] LABS: Hematocrit 28.6 % (33.0-51.0); Hemoglobin 8.6 g/dL (11.5-16.0); Mean Corpuscular HGB 24.2 pg (26.0-34.0); Mean Corpuscular HGB Conc 30.1 g/dL (31.5-36.5); Mean Corpuscular Volume 81 fL (80-100); Platelet Count 388 K/mm3 (150-400); RDW Coefficient Variation 17.2 % (11.7-14.2); RDW Standard Deviation 49.7 fL (35.1-46.3); Red Blood Cell Count 3.55 M/mm3 (3.80-5.20); White Blood Cell Count 10.58 K/mm3 (4.00-11.30)
--- NOTE | 2021-11-12 03:52 | NUR ---
SHIFT SUMMARY PT WITH NG TUBE TO LOW SUCTION. PT COMPLAINS OF L SIDE PAIN AND JUST FEELING PAIN ALL OVER HER BODY. PT MEDICATED PER EMAR NECESSARY. PT INDEPENDENT AND ABLE TO TURN HERSELF IN BED.. STANDBY ASSIST ONLY TO ASSIST WITH NG TUBE AND IV TUBING FOR PT SAFETY. CALL LIGHT WITHIN REACH. WILL CONTINUE TO MONITOR.
[2021-11-12 04:09] LABS: Albumin, Blood 2.3 g/dL (3.4-5.0); Albumin/Globulin Ratio 0.7 (0.8-1.8); Bilirubin, Total 0.4 mg/dL (0.1-1.0); Bun/Creatinine Ratio 6.3 (12.0-20.0); Calcium, Blood 9.1 mg/dL (8.5-10.1); Creatinine, Blood 0.79 mg/dL (0.40-1.00); Globulin, Blood 3.3 g/dL (2.2-4.0); Magnesium, Blood 1.9 mg/dL (1.6-2.4); Total Protein, Blood 5.6 g/dL (6.4-8.2)
--- NOTE | 2021-11-12 18:07 | NUR ---
END OF SHIFT SUMMARY Pt slept most of the shift, c/o moderate ABD pain, PRN pain given. NS infusing, Potassium elixar given today. Stopped NG suction, per MD, trialing clear fluids. Pt had clears for dinner, tolerating well, denies N/V. 1x Medium loose stool this shift. Vitals stable. No other concerns at this time.
--- NOTE | 2021-11-13 04:27 | NUR ---
SHIFT SUMMARY NO ACUTE CHANGES TO PT CONDITION THROUGHOUT SHIFT. PT STS THAT TONIGHT WAS BETTER THAN RECENT NIGHTS. PT MEDICATED REGULARLY WITH PAIN MEDICATION PER EMAR. CALL LIGHT WITHIN REACH AND WILL CONTINUE TO MONITOR.
[2021-11-13 05:12] LABS: Hematocrit 24.6 % (33.0-51.0); Hemoglobin 7.5 g/dL (11.5-16.0); Mean Corpuscular HGB 24.5 pg (26.0-34.0); Mean Corpuscular HGB Conc 30.5 g/dL (31.5-36.5); Mean Corpuscular Volume 80 fL (80-100); Mean Platelet Volume 10.7 fL (9.1-12.4); Platelet Count 364 K/mm3 (150-400); RDW Coefficient Variation 17.3 % (11.7-14.2); RDW Standard Deviation 50.3 fL (35.1-46.3); Red Blood Cell Count 3.06 M/mm3 (3.80-5.20); White Blood Cell Count 8.76 K/mm3 (4.00-11.30)
[2021-11-13 05:49] LABS: Albumin, Blood 2.2 g/dL (3.4-5.0); Albumin/Globulin Ratio 0.7 (0.8-1.8); Bilirubin, Total 0.8 mg/dL (0.1-1.0); Bun/Creatinine Ratio 4.2 (12.0-20.0); Calcium, Blood 8.5 mg/dL (8.5-10.1); Creatinine, Blood 0.71 mg/dL (0.40-1.00); Globulin, Blood 3.1 g/dL (2.2-4.0); Total Protein, Blood 5.3 g/dL (6.4-8.2)
--- NOTE | 2021-11-13 18:46 | NUR ---
DAYSHIFT SUMMARY Pt doing well this shift, transitioned to oral pain meds, advancing diet as tolerated. Tolerating oral intake. Removed NG tube per MD orders. Pt worked with therapy today. Vitals stable, no other concerns at this time.
--- NOTE | 2021-11-14 03:56 | NUR ---
Patient with VSS on RA overnight. Patient up independently in room. Paitient passing flatus and small amounts of loose, green stool. No c/o nausea overnight. Abdomen with minimal bloating and hypo BS. Tolerating liquid diet intake. Some LUQ pain reported. See MAR. patient hoping to return home today 11/14.
[2021-11-14 08:24] LABS: Hematocrit 26.3 % (33.0-51.0); Hemoglobin 7.8 g/dL (11.5-16.0); Mean Corpuscular HGB 24.1 pg (26.0-34.0); Mean Corpuscular HGB Conc 29.7 g/dL (31.5-36.5); Mean Corpuscular Volume 81 fL (80-100); Mean Platelet Volume 10.4 fL (9.1-12.4); Platelet Count 362 K/mm3 (150-400); RDW Coefficient Variation 17.9 % (11.7-14.2); RDW Standard Deviation 51.6 fL (35.1-46.3); Red Blood Cell Count 3.24 M/mm3 (3.80-5.20)
[2021-11-14 08:53] LABS: Bun/Creatinine Ratio 2.8 (12.0-20.0); Calcium, Blood 8.8 mg/dL (8.5-10.1); Creatinine, Blood 0.71 mg/dL (0.40-1.00)
[2021-11-14] MEDS ORDERED: ONDA4 PO (14:42)
--- NOTE | 2021-11-14 15:00 | NUR ---
Mid-Shift Summary A/O, had two small bm's today and passing flatus. Medicated with zofran x 1. Up in room independently. Appetite is good. Denies abdominal pain. Uneventful day.
== END 2021-11-14 15:25 | disposition home or self-care (01) | DRG 389 ==
LOC: ER 03:49 → MEDS 06:02
PROVIDERS: Emergency Medicine; Internal Medicine; ADMIT Family Medicine
DX: K91.30 Postprocedural intestinal obstruction, unspecified as to partial versus complete (principal); B02.29 Other postherpetic nervous system involvement; K50.012 Crohn's disease of small intestine with intestinal obstruction; K21.9 Gastro-esophageal reflux disease without esophagitis; E78.5 Hyperlipidemia, unspecified; E87.6 Hypokalemia; R19.7 Diarrhea, unspecified; D72.829 Elevated white blood cell count, unspecified; D53.9 Nutritional anemia, unspecified; D75.838 Other thrombocytosis; I12.9 Hypertensive chronic kidney disease with stage 1 through stage 4 chronic kidney disease, or unspecified chronic kidney disease; N18.30 Chronic kidney disease, stage 3 unspecified; Z85.038 Personal history of other malignant neoplasm of large intestine; Z98.890 Other specified postprocedural states; Z90.49 Acquired absence of other specified parts of digestive tract; Z90.710 Acquired absence of both cervix and uterus; Z87.891 Personal history of nicotine dependence; Z88.5 Allergy status to narcotic agent; Z79.2 Long term (current) use of antibiotics; Z79.899 Other long term (current) drug therapy
CPT/HCPCS: 36415; 74177; 80048; 80053; 83605; 83690; 83735; 84145; 85025; 85027; 96361; 96365-59; 96375; 96376; 97112; 97161; 99285-25; A9270; C9113; G0378; J2270; J2405; J3010; J3480; J7030; Q9967

== ENCOUNTER 2024-06-29 15:50 | Emergency (ER) | payer OTHER ==
[~2024-06-29] VITALS: Ht 162.6 cm; Wt 78.9 kg
[~2024-06-29 15:50] MED LIST changes: +ONDA4 PO
[2024-06-29 16:41] LABS: Source, Urine Clean Catch
[2024-06-29 16:46] LABS: Appearance, Urine Clear (Clear); Bilirubin, Urine Neg (Neg); Blood, Urine Neg (Neg); Glucose Qualitative, Urine Neg (Neg); Ketones, Urine Neg (Neg); Leukocyte Esterase, Urine Neg (Neg); Nitrite, Urine Neg (Neg); Protein, Urine Neg (Neg); Specific Gravity, Urine 1.015 (1.003-1.022); Urobilinogen, Urine NORM (Normal)
[2024-06-29 16:48] LABS: Color, Urine Pale Yellow (P-Yellow)
[2024-06-29 16:57] LABS: BASOPHILS ABSOLUTE AUTO 0.03 K/mm3 (0.00-0.23); BASOPHILS PERCENT AUTO 0 % (0-2); EOSINOPHILS PERCENT AUTO 0 % (0-6); Hematocrit 42.8 % (33.0-51.0); Hemoglobin 13.8 g/dL (11.5-16.0); IMMATURE GRAN ABSOLUTE AUTO 0.02 K/mm3 (0.00-0.10); IMMATURE GRAN PERCENT AUTO 0 % (0-1); LYMPHOCYTES ABSOLUTE AUTO 2.32 K/mm3 (0.84-5.20); LYMPHOCYTES PERCENT AUTO 33 % (21-46); MONOCYTES ABSOLUTE AUTO 0.54 K/mm3 (0.16-1.47); MONOCYTES PERCENT AUTO 8 % (4-13); Mean Corpuscular HGB 30.2 pg (26.0-34.0); Mean Corpuscular HGB Conc 32.2 g/dL (31.5-36.5); Mean Corpuscular Volume 94 fL (80-100); NEUTROPHILS ABSOLUTE AUTO 4.11 K/mm3 (1.96-9.15); NEUTROPHILS PERCENT AUTO 59 % (41-73); Platelet Count 263 K/mm3 (150-400); RDW Coefficient Variation 13.3 % (11.7-14.2); RDW Standard Deviation 45.2 fL (35.1-46.3); Red Blood Cell Count 4.57 M/mm3 (3.80-5.20); White Blood Cell Count 7.02 K/mm3 (4.00-11.30)
[2024-06-29 17:17] LABS: Albumin, Blood 3.7 g/dL (3.4-5.0); Albumin/Globulin Ratio 0.9 (0.8-1.8); Bilirubin, Total 0.4 mg/dL (0.1-1.0); Bun/Creatinine Ratio 17.3 (12.0-20.0); Calcium, Blood 10.1 mg/dL (8.5-10.1); Creatinine, Blood 0.93 mg/dL (0.40-1.00); Globulin, Blood 4.2 g/dL (2.2-4.0); Potassium, Blood 4.2 mmol/L (3.5-5.5); Total Protein, Blood 7.9 g/dL (6.4-8.2)
[2024-06-29] MEDS ORDERED: Simvastatin40 MG PO (19:48)
[2024-06-29 20:15] VITALS: BP 145/90
== END 2024-06-29 20:24 | disposition home or self-care (01) ==
LOC: ER 15:50
PROVIDERS: Student in an Organized Health Care Education/Training Program
DX: K80.20 Calculus of gallbladder without cholecystitis without obstruction (principal); K21.9 Gastro-esophageal reflux disease without esophagitis; I10 Essential (primary) hypertension; Z87.891 Personal history of nicotine dependence; Z79.899 Other long term (current) drug therapy; Z88.5 Allergy status to narcotic agent
CPT/HCPCS: 74177; 80053; 81003; 83690; 85025; 93005; 93010; 99284-25; Q9967

== ENCOUNTER 2024-07-03 16:28 | Inpatient (IN) | payer OTHER ==
[~2024-07-03] VITALS: Ht 160 cm; Wt 76.8 kg
[~2024-07-03 16:28] MED LIST changes: +Simvastatin40 MG PO
[2024-07-03 17:38] LABS: BASOPHILS ABSOLUTE AUTO 0.03 K/mm3 (0.00-0.23); BASOPHILS PERCENT AUTO 1 % (0-2); EOSINOPHILS ABSOLUTE AUTO 0.01 K/mm3 (0.00-0.68); EOSINOPHILS PERCENT AUTO 0 % (0-6); Hematocrit 46.1 % (33.0-51.0); Hemoglobin 15.3 g/dL (11.5-16.0); IMMATURE GRAN ABSOLUTE AUTO 0.01 K/mm3 (0.00-0.10); IMMATURE GRAN PERCENT AUTO 0 % (0-1); LYMPHOCYTES ABSOLUTE AUTO 2.35 K/mm3 (0.84-5.20); LYMPHOCYTES PERCENT AUTO 37 % (21-46); MONOCYTES PERCENT AUTO 9 % (4-13); Mean Corpuscular HGB 30.9 pg (26.0-34.0); Mean Corpuscular HGB Conc 33.2 g/dL (31.5-36.5); Mean Corpuscular Volume 93 fL (80-100); Mean Platelet Volume 10.6 fL (9.1-12.4); NEUTROPHILS ABSOLUTE AUTO 3.39 K/mm3 (1.96-9.15); NEUTROPHILS PERCENT AUTO 53 % (41-73); Platelet Count 293 K/mm3 (150-400); RDW Coefficient Variation 13.3 % (11.7-14.2); RDW Standard Deviation 45.1 fL (35.1-46.3); Red Blood Cell Count 4.95 M/mm3 (3.80-5.20); White Blood Cell Count 6.39 K/mm3 (4.00-11.30)
[2024-07-03 18:02] LABS: Albumin/Globulin Ratio 0.9 (0.8-1.8); Bilirubin, Total 0.5 mg/dL (0.1-1.0); Bun/Creatinine Ratio 8.9 (12.0-20.0); Calcium, Blood 9.4 mg/dL (8.5-10.1); Creatinine, Blood 0.9 mg/dL (0.40-1.00); Globulin, Blood 4.5 g/dL (2.2-4.0); Potassium, Blood 3.5 mmol/L (3.5-5.5); Total Protein, Blood 8.5 g/dL (6.4-8.2)
[2024-07-03] MEDS ORDERED: Lactated Ringer's 1,000 ML IV ONE (20:56)
[2024-07-03] MEDS ORDERED: Lactated Ringer's 1,000 ML IV SCH (21:00)
[2024-07-03] MEDS ORDERED: Morphine Sulfate 4 MG/1 ML Injection IV ONE (21:05)
[2024-07-03] MEDS ORDERED: Ondansetron HCl 2 MG / ML 2ML Vial IV ONE (21:05)
[2024-07-04] VITALS (18 sets, daily range): BP systolic 128–219; BP diastolic 56–90
[2024-07-04] MEDS ORDERED: Ampicillin Sod/Sulbactam Sod 3 GM in NS 100 ML IV SCH
[2024-07-04] MEDS ORDERED: FLU VACC TS2024-25(6MOS UP)/PF 45 MCG/0.5 ML SYRINGE IM ONE (00:15)
[2024-07-04] MEDS ORDERED: Morphine Sulfate 4 MG/1 ML Injection IV PRN ×2 (00:40→04:00)
[2024-07-04] MEDS ORDERED: Naloxone HCl 0.4MG / ML 1ML Vial IV PRN (00:40)
[2024-07-04] MEDS ORDERED: Lactated Ringer's 1,000 ML IV SCH (01:00)
[2024-07-04] MEDS ORDERED: NS 250 ML IV PRN (01:35)
[2024-07-04] MEDS ORDERED: HydrALAZINE HCl 20 MG / ML 1ML Vial IV PRN (01:55)
--- NOTE | 2024-07-04 06:12 | NUR ---
SHIFT SUMMARY NOC PT A/O X 4. PLEASANT AND COOPERATIVE WITH CARE. ADMIT FROM ED @ 0100 WITH DX CHOLYCYSTITIS, PT HAS HAD C/O OF RUQ PAST 5 DAYS. PT IS NPO IN PREPARATION FOR CHOLY THAT DR WINSLOW HAS BEEN CONSULTED ON TODAY AND HAS LR INFUSING @ 75 ML/HR X 2 BAGS, AND Q6H CBG CHECKS. UPON ARRIVAL TO UNIT PT HAD BP 219/86, 216/87, AND AFTER 4MG IV MORPHINE 185/73, AND FINALLY STABALIZED @ 140/56. HOSPITALIST NOTIFIED OF ELEVATED BP AND ORDREED IV HYDRALAZINE 10 MG PRN FOR SYSTOLIC >170. PT RUQ ABD PAIN BEING MANAGED PER EMAR. PT CURRENTLY RESTING WITH BED IN LOWEST POSITION, AND CALL LIGHT WITHIN REACH.
[2024-07-04] MEDS ORDERED: Heparin Sodium 5000 Units/ML 1ML MDV SC SCH (09:00)
[2024-07-04] MEDS ORDERED: Sugammadex Sodium 200 MG/2ML SDV (100 MG/ML) ONE (11:27)
[2024-07-04] MEDS ORDERED: propofoL 20 ML IV ONE (11:27)
[2024-07-04] MEDS ORDERED: Ondansetron HCl 2 MG / ML 2ML Vial ONE ×2 (11:27→14:10)
[2024-07-04] MEDS ORDERED: FentaNYL Citrate 50 MCG/ML 5 ML Injection ONE (11:27)
[2024-07-04] MEDS ORDERED: Rocuronium Bromide 10 MG/ML 5ML Injection IV ONE (11:27)
[2024-07-04] MEDS ORDERED: Dexamethasone Sod Phos 10 MG/ML 1ML VIAL ONE (11:27)
--- NOTE | 2024-07-04 12:10 | NUR ---
PT TO DAY SURGERY WITH RN
[2024-07-04] MEDS ORDERED: Lactated Ringer's 1,000 ML IV ONE (12:15)
[2024-07-04] MEDS ORDERED: Bupivacaine 0.5% HCl 5 MG/ML 30MLVIAL ONE (12:18)
[2024-07-04] MEDS ORDERED: Phenylephrine HCl 100 MCG/ML-NS 10MLSYR (1MG/10ML) ONE (12:43)
--- NOTE | 2024-07-04 13:11 | NUR ---
07/04/24 1311 Arie Walker PT ON SCHEDULED ANTIBIOTICS
[2024-07-04] MEDS ORDERED: Labetalol HCL 5 MG/ML 4ML Injection (Single Dose) ONE (14:01)
[2024-07-04] MEDS ORDERED: HYDROcodone 5-APAP 325 TAB PO PRN (14:20)
[2024-07-04] MEDS ORDERED: Metoclopramide HCl 5MG / ML 2ML Vial ONE (14:22)
[2024-07-04] MEDS ORDERED: HydrALAZINE HCl 20 MG / ML 1ML Vial ONE (14:47)
--- NOTE | 2024-07-04 15:10 | NUR ---
PT ARRIVES BACK TO ROOM FROM PACU. A/OX4. ADEQUATE PAIN CONTROL. MULTIPLE VISITORS IN ROOM. PT HAS LAP SITES X4 TO ABD. GAUZE WITH CLEAR DRESSINGS IN PLACE. C/D/I.
--- NOTE | 2024-07-04 18:58 | NUR ---
SHIFT SUMMARY PT POD0 FOR CHOLECYSTECTOMY. PT A/OX4. DIET ADVANCED TO REGULAR AND PT PERCY WELL. PT MEDIATED 1 TIME WITH ORAL PAIN MEDS POST-OP. LAP SITES X4 TO ABD WITH GAUZE AND CLEAR DRESSING C/D/I. PT HAS BEEN UP TO VOID MULTIPLE TIMES. PT IN GOOD SPIRITS AND IS HOPING TO DISCHARGE TOMORROW.
--- NOTE | 2024-07-05 04:08 | NUR ---
SHIFT SUMMARY POD2 LAP HAIM, LAP SITES X4. C/D/I. TEGADERM WITH GAUZE. DENIES N/V. TOLERATES PO INTAKE. VOIDING, REPORTS PASSING SOME FLATUS. DENIES PAIN. VSS, CALLS APPROP.
[2024-07-05 04:11] VITALS: BP 151/66
[2024-07-05 06:39] VITALS: BP 170/80
[2024-07-05 07:28] VITALS: BP 161/69
[2024-07-05] MEDS ORDERED: HYDR1TAB94 PO ×2 (09:25)
--- NOTE | 2024-07-05 09:55 | NUR ---
"Spiritual Care request | Pt. request pt. is awake in her room when she welcomes my visit. Pt. is pleasant and verbalizes an expectation to be discharged soon. Facilitated a life review. Pt. has been seen by this bushel girl on a previsou hospital visit. Pt. displayed evidence of being a woman of joy. Prayed with the Pt, Pt. verbalized gratitude for the spiritual care visit."
== END 2024-07-05 11:10 | disposition home or self-care (01) | DRG 419 ==
LOC: ER 16:28 → ERHOLD 07-04 00:10 → SURS 07-04 00:10
PROVIDERS: Emergency Medicine; Surgery; ADMIT Student in an Organized Health Care Education/Training Program
PROC: 0FT44ZZ Resection of Gallbladder, Percutaneous Endoscopic Approach (ICD-10-PCS; principal; 2024-07-04 10:15)
DX: K80.00 Calculus of gallbladder with acute cholecystitis without obstruction (principal); K21.9 Gastro-esophageal reflux disease without esophagitis; E78.5 Hyperlipidemia, unspecified; R94.31 Abnormal electrocardiogram [ECG] [EKG]; R03.0 Elevated blood-pressure reading, without diagnosis of hypertension; Z85.038 Personal history of other malignant neoplasm of large intestine; Z90.49 Acquired absence of other specified parts of digestive tract; Z87.891 Personal history of nicotine dependence; Z88.5 Allergy status to narcotic agent
CPT/HCPCS: 76705; 80053; 82947; 83690; 85025; 88304; 93005; 93010; 94762; 96374; 96375; 99285-25; A9270; J0295; J0360; J1100; J2270; J2371; J2405; J2704; J2765; J3010; J7050; J7120